=== PATIENT | female | born 1975 | race Two or more races ===

== ENCOUNTER 2024-06-02 22:21 | Emergency (ER) | payer OTHER ==
[~2024-06-02] VITALS: Ht 157.5 cm; Wt 86.2 kg
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
--- NOTE | 2024-06-02 23:30 | NUR ---
Established IV line at LT HAND G22, blood specimen collected sent to lab
[2024-06-02 23:41] LABS: BASOPHILS # (AUTO) 0.1 K/uL (0.0-0.2); BASOPHILS % (AUTO) 0.6 % (0.0-2.0); EOSINOPHILS % (AUTO) 0.2 % (0.0-6.0); HEMATOCRIT 43 % (33-45); HEMOGLOBIN 14.5 g/dL (11.5-14.8); LYMPHOCYTES # (AUTO) 2.9 K/uL (0.8-4.8); LYMPHOCYTES % (AUTO) 18.5 % (20.0-44.0); MEAN CORPUSCULAR HEMOGLOBIN 30 PG (26.0-33.0); MEAN CORPUSCULAR HGB CONC 33 g/dl (31.0-36.0); MEAN CORPUSCULAR VOLUME 91 fL (82-100); MONOCYTES % (AUTO) 6.4 % (2.0-12.0); NEUTROPHILS # (AUTO) 11.8 K/uL (1.8-8.9); NEUTROPHILS % (AUTO) 74.3 % (43.0-81.0); PLATELET COUNT (AUTO) 316 K/uL (150-450); RED BLOOD CELL COUNT(AUTO) 4.76 MIL/uL (4.0-5.2); RED CELL DISTRIBUTION WIDTH 13.7 % (11.5-15.0); WHITE BLOOD COUNT (AUTO) 15.9 K/uL (4.3-11.0)
[2024-06-02] MEDS: ONDANSETRON HCL/PF - ER 4 MG/2 ML VIAL IV ONE (23:41)
[2024-06-02] MEDS: MORPHINE SULFATE INJ 2 MG/ML DISP.SYRIN IV ONE (23:41)
[2024-06-02 23:58] LABS: CALCIUM, SERUM 8.9 mg/dL (8.5-10.1); CREATININE 0.5 mg/dL (0.6-1.3); POTASSIUM 3.7 mmol/L (3.5-5.1)
[2024-06-03 00:04] LABS: ALBUMIN 3.2 g/dL (3.4-5.0); BILIRUBIN,TOTAL 0.4 mg/dL (0.2-1.0); TOTAL PROTEIN, SERUM 7.4 g/dL (6.4-8.2)
[2024-06-03] MEDS ORDERED: CT SWABBABLE VALVE TRANS SET 1 EA INFUS.SET MC ONE (00:15)
[2024-06-03] MEDS ORDERED: IV NS 0.9% 250 ML IV ONE (00:15)
[2024-06-03] MEDS ORDERED: IOHEXOL-300 100 ML VIAL IV ONE (00:15)
--- NOTE | 2024-06-03 00:20 | NUR ---
Transported to CT scan via [facility]
--- NOTE | 2024-06-03 00:30 | NUR ---
Transported back from CT
[2024-06-03] MEDS ORDERED: NAPR-1009 PO (02:49)
[2024-06-03] MEDS ORDERED: CYCL10TA9 PO (03:31)
[2024-06-03 03:48] VITALS: BP 118/81; TEMP 98; O2SAT 100
--- NOTE | 2024-06-03 03:48 | NUR ---
Patient discharged to home in stable condition. Written and verbal after care instructions given. Patient verbalizes understanding of instruction. IV removed. Catheter intact and site benign. Pressure and 4x4 applied to site. No bleeding noted.
== END 2024-06-03 03:49 | disposition home or self-care (01) ==
LOC: ER 22:22
DX: M79.81 Nontraumatic hematoma of soft tissue (principal); R51.9 Headache, unspecified; M54.2 Cervicalgia; R07.9 Chest pain, unspecified; V43.52XA Car driver injured in collision with other type car in traffic accident, initial encounter; Y93.89 Activity, other specified; Y92.415 Exit ramp or entrance ramp of street or highway as the place of occurrence of the external cause; Y99.8 Other external cause status
CPT/HCPCS: 99285; 72125; 96374; 96375; 71260; 70450; 74177; 85025; 36415; 80053; J2405; J7050; Q9967